=== PATIENT | female | born 1990 | race Caucasian/White ===

== ENCOUNTER 2023-06-17 07:25 | Day surgery (SDC) | payer OTHER ==
[~2023-06-17] VITALS: Ht 177.8 cm; Wt 97.5 kg
[~2023-06-17 07:25] MED LIST: CONJUGATED ESTROGENS VAG CREAM 42 GM TUBE VG SCH; POTASSIUM IODIDE/IODINE 5% 14 ML BTL ONE
[2023-06-17] MEDS ORDERED: FERRIC SUBSULFATE 20%-22%-8 ML PASTE TP SCH (08:00)
[2023-06-17] MEDS ORDERED: CONJUGATED ESTROGENS VAG CREAM 42 GM TUBE VG SCH (09:00)
[2023-06-17] MEDS ORDERED: ACETAMINOPHEN 100 ML IV ONE (10:19)
[2023-06-17] MEDS ORDERED: PROPOFOL 200 MG/20 ML VIAL IV ONE ×3 (10:23→12:57)
[2023-06-17] MEDS ORDERED: FAMOTIDINE 20 MG/2 ML VIAL ONE ×2 (10:27→12:21)
[2023-06-17] MEDS ORDERED: MIDAZOLAM 2 MG/2 ML VIAL ONE (12:41)
[2023-06-17] MEDS ORDERED: fentaNYL citrate 0.05 MG/ML VIAL ONE (12:42)
[2023-06-17] MEDS ORDERED: LIDOCAINE/EPI MPF 1%1:200000 30 ML VIAL INJ ONE (12:55)
[2023-06-17] MEDS ORDERED: HYDROmorphone PFS 2 MG/ML SYR ONE (13:15)
[2023-06-17] MEDS: HYDROmorphone 1 MG/ML AMP IVP PRN ×4 (13:20→13:50)
[2023-06-17] MEDS ORDERED: ONDANSETRON 4 MG/2 ML VIAL IVP SCH (15:00)
== END 2023-06-17 18:57 | disposition home or self-care (01) ==
LOC: MOR 07:25 → MMU 07:29 → MOR 18:57
PROVIDERS: ATTEND Obstetrics & Gynecology
DX: N87.0 Mild cervical dysplasia (principal); N88.8 Other specified noninflammatory disorders of cervix uteri; Z87.42 Personal history of other diseases of the female genital tract; K21.9 Gastro-esophageal reflux disease without esophagitis; F41.9 Anxiety disorder, unspecified; J45.909 Unspecified asthma, uncomplicated; Z98.890 Other specified postprocedural states; Z79.899 Other long term (current) drug therapy
CPT/HCPCS: 36415; 57522; 86886; 86900; 86901; 88305; 88307; J0690; J1170; J2001; J2250; J2405; J2704; J3010; J3490; J7060